=== PATIENT | male | born 1965 | race American Indian/Alaskan Native ===

== ENCOUNTER 2021-08-04 19:58 | Emergency (ER) | payer SELFPAY ==
--- NOTE | 2021-08-04 22:14 | Emergency Department Report ---
ED General Adult HPI - General Chief complaint: Upper Respiratory Infection Stated complaint: FLU SYMP Time Seen by Provider: 08/04/21 21:12 Source: patient Mode of arrival: Ambulatory Limitations: No Limitations - History of Present Illness Initial comments: Patient 56-year-old -[place] male who presents with cold-like symptoms cough chills malaise states cough is productive thick white for the past week. She is not COVID vaccinated. Patient denies dizziness or lightheadedness no nausea vomiting no chest pain. Patient states nocturnal fever no fever noted in triage at this time. Patient is tolerating p.o. intake. Patient is amatory with steady gait and appears in no acute distress. - Related Data Previous Rx's Medication Instructions Recorded Last Taken Type Albuterol Mdi (or & Nicu Only) 2 puff IH QID PRN #8.5 gram 08/04/21 Unknown Rx [ProAir HFA Inhaler] Azithromycin 500 mg PO DAILY #5 08/04/21 Unknown Rx Ibuprofen [Motrin 800 MG tab] 800 mg PO Q8HR PRN #30 tablet 08/04/21 Unknown Rx dexAMETHasone [Decadron] 4 mg PO BID 5 Days #10 tablet 08/04/21 Unknown Rx Allergies Allergy/AdvReac Type Severity Reaction Status Date / Time No Known Allergies Allergy Verified 08/04/21 21:12 ED Review of Systems ROS: Stated complaint: FLU SYMP Other details as noted in HPI Constitutional: fever, malaise Eyes: denies: eye pain, eye discharge, vision change ENT: throat pain, congestion. denies: ear pain Respiratory: cough. denies: shortness of breath, wheezing Cardiovascular: denies: chest pain, palpitations Endocrine: no symptoms reported Gastrointestinal: denies: abdominal pain, nausea, vomiting, diarrhea Genitourinary: as per HPI. denies: urgency, dysuria Musculoskeletal: denies: back pain, joint swelling, arthralgia Skin: denies: rash, lesions Neurological: denies: headache, weakness, paresthesias Psychiatric: denies: anxiety, depression Hematological/Lymphatic: denies: easy bleeding, easy bruising ED Past Medical Hx - Past Medical History Previous Medical History?: No - Surgical History Past Surgical History?: No - Medications Home Medications: Home Medications Medication Instructions Recorded Confirmed Last Taken Type Albuterol Mdi (or & Nicu Only) 2 puff IH QID PRN #8.5 gram 08/04/21 Unknown Rx [ProAir HFA Inhaler] Azithromycin 500 mg PO DAILY #5 08/04/21 Unknown Rx Ibuprofen [Motrin 800 MG tab] 800 mg PO Q8HR PRN #30 tablet 08/04/21 Unknown Rx dexAMETHasone [Decadron] 4 mg PO BID 5 Days #10 tablet 08/04/21 Unknown Rx ED Physical Exam - General Limitations: No Limitations General appearance: alert, in no apparent distress - Head Head exam: Present: normocephalic, normal inspection - Eye Eye exam: Present: normal appearance, EOMI Pupils: Present: normal accommodation - ENT ENT exam: Present: mucous membranes moist - Neck Neck exam: Present: normal inspection, full ROM. Absent: tenderness, lymphadenopathy, thyromegaly - Respiratory Respiratory exam: Present: normal lung sounds bilaterally. Absent: respiratory distress, wheezes, rales, rhonchi, stridor, chest wall tenderness - Cardiovascular Cardiovascular Exam: Present: regular rate, normal rhythm, normal heart sounds. Absent: systolic murmur, diastolic murmur, rubs, gallop - GI/Abdominal GI/Abdominal exam: Present: soft, normal bowel sounds. Absent: distended, tenderness - Rectal Rectal exam: Present: deferred - Extremities Exam Extremities exam: Present: normal inspection, full ROM, normal capillary refill. Absent: tenderness - Back Exam Back exam: Present: normal inspection, full ROM. Absent: CVA tenderness (R), CVA tenderness (L) - Neurological Exam Neurological exam: Present: alert, oriented X3, CN II-XII intact, normal gait - Psychiatric Psychiatric exam: Present: normal affect, normal mood - Skin Skin exam: Present: warm, dry, intact, normal color. Absent: rash ED Course Vital Signs 08/04/21 21:10 Temperature 99.5 F Pulse Rate 65 Respiratory 20 Rate Blood Pressure 114/65 O2 Sat by Pulse 94 Oximetry ED Medical Decision Making - Radiology Data Radiology results: report reviewed, image reviewed . CHEST 2 VIEWS INDICATION: cough fever. COMPARISON: None FINDINGS: SUPPORT DEVICES: None. HEART: Within normal limits. LUNGS/PLEURA: Mild patchy multifocal airspace disease throughout the lungs. No effusion. No pneumothorax. ADDITIONAL FINDINGS: None. IMPRESSION: 1. Lung findings as above. Signer Name: Brennan Kathleen MD Signed: 08/04/2021 10:31 PM Workstation Name: [id number] Transcribed By: AMANDA Dictated By: Brennan Kathleen MD Electronically Authenticated By: Brennan Kathleen MD Signed Date/Time: 08/04/212230 - Medical Decision Making Chest x-ray :Mild patchy multifocal airspace disease throughout the lungs. No effusion. No pneumothorax. , Lung sounds are clear throughout patient advised symptoms are mild at this time O2 sat is 98% on room air there is no wheezing no stridor. Patient has ambulated from room to bathroom and back to room without increased shortness of breath. Plan diagnosis PUI, CAP Pneumonia, plan DC to home. Quarantine as directed. Follow-up with your doctor in 2 to 3 days. Called and advised that you are PUI, COVID screening test at testing center, return to emergency should symptoms worsen. Patient verbalizes agreement and understanding with discharge plan patient is currently alert oriented x3 patient is ambulatory there is no respiratory distress patient appears well-hydrated , and well-nourished , and tolerating p.o. Patient DC'd home in stable condition at this time. Critical care attestation.: If time is entered above; I have spent that time in minutes in the direct care of this critically ill patient, excluding procedure time. ED Disposition Clinical Impression: Person under investigation for COVID-19 CAP (community acquired pneumonia) Qualifiers: Laterality: unspecified laterality Qualified Code(s): J18.9 - Pneumonia, unspecified organism Disposition: 01 HOME / SELF CARE / HOMELESS Is pt being admited?: No Does the pt Need Aspirin: No Condition: Stable Instructions: Bacterial Pneumonia (ED), Community-Acquired Pneumonia, Adult, [id number], COVID-19: How to Protect Yourself and Others - [facility] Additional Instructions: Take medications as prescribed, hydrate as directed, follow-up with your doctor in 2 to 3 days. Get COVID screening. Return to the emergency department should symptoms worsen. Prescriptions: Azithromycin 500 mg PO DAILY #5 dexAMETHasone [Decadron] 4 mg PO BID 5 Days #10 tablet Ibuprofen [Motrin 800 MG tab] 800 mg PO Q8HR PRN #30 tablet PRN Reason: Pain Fever Albuterol Mdi (or & Nicu Only) [ProAir HFA Inhaler] 2 puff IH QID PRN #8.5 gram PRN Reason: Shortness Of Breath Referrals: MISTI PARDO MD [Staff Physician] - 3-5 Days Forms: Work/School Release Form(ED) Time of Disposition: 23:04
--- NOTE | 2021-08-04 22:35 | XRay Report ---
. CHEST 2 VIEWS INDICATION: cough fever. COMPARISON: None FINDINGS: SUPPORT DEVICES: None. HEART: Within normal limits. LUNGS/PLEURA: Mild patchy multifocal airspace disease throughout the lungs. No effusion. No pneumoth orax. ADDITIONAL FINDINGS: None. IMPRESSION: 1. Lung findings as above. Signer Name: Brennan Kathleen MD Signed: 08/04/2021 10:31 PM Workstation Name: [id number]
[2021-08-04] MEDS ORDERED: dexAMETHasone 20 MG/5 ML VIAL IM ONE (22:56)
[2021-08-04] MEDS ORDERED: AZITHROMYCIN 250 MG TAB PO ONE (22:56)
[2021-08-05 01:05] VITALS: BP 127/73
== END 2021-08-05 00:23 | disposition home or self-care (01) ==
LOC: ED 19:58
DX: J18.9 Pneumonia, unspecified organism (principal); Z20.822 Contact with and (suspected) exposure to COVID-19; Z79.899 Other long term (current) drug therapy
CPT/HCPCS: 71046; 96372; 99283; J1100